=== PATIENT | female | born 1950 | race Asian ===

== ENCOUNTER → 2017-01-08 | Outpatient (CLI) | payer OTHER ==
[~2017-01-08] MED LIST: ACT30 PO; ECO81 PO; GLU500 PO; V10 PO; ZOC10 PO
== END | disposition home or self-care (01) ==
LOC: MA 09:30
PROC: BH02ZZZ Plain Radiography of Bilateral Breasts (ICD-10-PCS; principal; 2017-01-08)
DX: Z12.39 Encounter for other screening for malignant neoplasm of breast (principal)
CPT/HCPCS: G0202

== ENCOUNTER → 2017-05-02 | Outpatient (CLI) | payer OTHER | END | disposition home or self-care (01) | LOC: RD 12:00 | DX: M54.16 Radiculopathy, lumbar region (principal) ==